=== PATIENT | male | born 1975 ===

== ENCOUNTER → 2024-09-06 15:03 | Outpatient (REF) | payer OTHER, SELFPAY | LOC: DHSLP 15:03 | PROVIDERS: ATTENDING PHYSICIAN Internal Medicine | DX: G47.33 Obstructive sleep apnea (adult) (pediatric) (principal); R06.83 Snoring | CPT/HCPCS: 95800 ==

== ENCOUNTER → 2025-02-19 08:03 | Outpatient (REF) | payer OTHER, SELFPAY | LOC: DHSLP 08:03 | PROVIDERS: ATTENDING PHYSICIAN Internal Medicine Critical Care Medicine; FAMILY PHYSICIAN Internal Medicine | DX: G47.30 Sleep apnea, unspecified (principal); R06.83 Snoring | CPT/HCPCS: 95800 ==